=== PATIENT | male | born 1970 | race Caucasian/White ===

== ENCOUNTER 2022-09-27 19:20 | Emergency (ER) | payer MEDICARE ==
--- NOTE | 2022-09-27 21:30 | NUR ---
arrival pt arrived to ED ambulatory c/o flank and abd pain x 1 day pmhx kidney stones x5 months.
[2022-09-27 21:57] VITALS: BP 215/156
[2022-09-27] MEDS ORDERED: TORADOL IV STA (22:04)
[2022-09-27] MEDS ORDERED: TORADOL ONE (22:10)
--- NOTE | 2022-09-27 22:13 | ER.PDOC ---
General Chief Complaint: Requesting Medical Care Stated Complaint: ABD PAIN Time seen by MD: 22:12 Source: patient Exam Limitations: no limitations History of Present Illness Initial Comments Right lower quadrant pain for 1 week. Patient has a history of kidney stones and thinks that he is passing one. It feels same. Severity/Quality: moderate, sharpness Radiation: no radiation Associated Symptoms: denies symptoms Exacerbated by: nothing Relieved By: nothing Vital Signs First Vital Signs Date Time Temp Pulse Resp B/P (MAP) Pulse Ox O2 Delivery O2 Flow Rate FiO2 09/27/22 21:57 98.7 113 20 09/27/22 21:57 96 09/27/22 21:57 215/156 (175) Room Air* 0 21 Last Vital Signs Date Time Temp Pulse Resp B/P (MAP) Pulse Ox O2 Delivery O2 Flow Rate FiO2 09/28/22 00:42 94 175/120 09/27/22 21:57 98.7 20 96 Room Air* 0 21 Past Medical History Medical History: GERD, high cholesterol, hypertension, other Family History Significant Family History: no pertinent family hx Social History Smoking: non-smoker Alcohol Use: none Drug Use: other Constitutional: no symptoms reported EENTM: no symptoms reported Respiratory: no symptoms reported Cardiovascular: no symptoms reported Gastrointestinal: see HPI All Other Systems: Reviewed and Negative Physical Exam General Appearance: No Apparent Distress, WD/WN Neck: Non-Tender, Full Range of Motion, Supple, Normal Inspection Respiratory: chest non-tender, lungs clear, normal breath sounds, no respiratory distress, no accessory muscle use Cardiovascular: Normal Peripheral Pulses, Regular Rate, Rhythm, No Edema, No Gallop, No JVD, No Murmur Gastrointestinal: Normal Bowel Sounds, No Organomegaly, No Pulsatile Mass, Guarding, Tenderness (RLQ) Back: Normal Inspection, No CVA Tenderness, No Vertebral Tenderness Extremities: Normal Range of Motion, Non-Tender, Normal Inspection, No Pedal Edema, No Calf Tenderness, Normal Capillary Refill, Pelvis Stable 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 (09/27/22 22:04) Urinalysis (09/27/22 22:04) Ct Abd/Pelvis Wo Iv Contrast (09/27/22 22:04) Ketorolac Tromethamine (Toradol) (09/27/22 22:04) Ketorolac Tromethamine (Toradol) (09/27/22 22:10) Lactic Acid(Ml) (09/27/22 23:40) 0.9 % Sodium Chloride (Ns 1000ml) (09/27/22 23:40) 0.9 % Sodium Chloride (Ns 1000ml) (09/27/22 23:58) Urine Culture (09/27/22 22:10) Hydralazine Hcl (Apresoline) (09/28/22 00:34) Ceftriaxone Sodium (Rocephin) (09/28/22 00:34) Hydralazine Hcl (Apresoline) (09/28/22 00:38) Ceftriaxone Sodium (Rocephin) (09/28/22 00:38) 0.9 % Sodium Chloride (Ns 100ml) (09/28/22 00:38) Hydromorphone Hcl (Dilaudid) (09/28/22 00:55) Hydromorphone Hcl (Dilaudid) (09/28/22 00:58) Vital Signs Date Time Temp Pulse Resp B/P (MAP) Pulse Ox O2 Delivery O2 Flow Rate FiO2 09/28/22 00:42 94 175/120 09/27/22 21:57 98.7 113 20 215/156 (175) 96 Room Air* 0 21 09/27/22 21:57 98.7 113 20 96 09/27/22 21:57 98.7 113 20 Administered Medications Medications (Trade) Dose Ordered Sig/Jacey Route PRN Reason Start Time Stop Time Status Last Admin Dose Admin Ceftriaxone Sodium 1000 mg/ Sodium Chloride 100 ml @ 100 mls/hr STAT STAT IV 09/28/22 00:34 09/28/22 01:33 09/28/22 00:42 100 MLS/HR Hydralazine HCl (Apresoline) 10 mg STAT STAT IV 09/28/22 00:34 09/28/22 00:36 DC 09/28/22 00:42 10 MG Hydromorphone HCl (Dilaudid) 2 mg STAT STAT IV 09/28/22 00:55 09/28/22 00:56 DC 09/28/22 01:01 2 MG Ketorolac Tromethamine (Toradol) 30 mg STAT STAT IV 09/27/22 22:04 09/27/22 22:06 DC 09/27/22 22:13 30 MG Sodium Chloride 1,000 ml @ 1,200 mls/hr Q50M STAT IV 09/27/22 23:40 09/28/22 00:29 DC 09/28/22 00:03 1,200 MLS/HR Laboratory Tests Test 09/27/22 22:10 09/27/22 23:54 White Blood Count 12.4 10^3/uL (4.5-11.0) H Red Blood Count 5.42 10^6/uL (4.50-5.90) Hemoglobin 16.8 g/dL (13.9-16.3) H Hematocrit 48.3 % (37.0-53.0) Mean Corpuscular Volume 89.1 fL (78-100) Mean Corpuscular Hemoglobin 31.0 pg (26-34) Mean Corpuscular Hemoglobin Concent 34.8 g/dL (33-36.5) Red Cell Distribution Width 12.3 % (11.5-14.5) Platelet Count 252 10^3/uL (150-400) Mean Platelet Volume 11.1 fL (7.8-11.0) H Neutrophils (%) (Auto) 55.8 % (41.0-85.0) Lymphocytes (%) (Auto) 34.9 % (24.0-44.0) Monocytes (%) (Auto) 6.5 % (5.0-12.0) Neutrophils # (Auto) 6.9 10^3/uL (1.8-7.7) Lymphocytes # (Auto) 4.34 10^3/uL1 (1.0-4.8) Monocytes # (Auto) 0.8 10^3/uL (0.3-0.8) Absolute Immature Granulocyte (auto 0.06 10^3 u/L (0-2) Absolute Eosinophils (auto) 0.2 10^3/uL (0.0-0.2) Immature Granulocytes % 0.50 % (0.00-0.50) Eosinophils % 1.6 % (0.0-5.0) Basophils % 0.7 % (0.0-0.2) H Basophils # 0.1 10^3/uL (0.0-0.1) Prothrombin Time 10.3 SEC (9.7-11.6) INR 1.0 Activated Partial Thromboplast Time 26.4 SEC (22.5-33.1) Sodium Level 141 mmol/L (132-145) Potassium Level 3.8 mmol/L (3.6-5.2) Chloride Level 102.0 mmol/L (96-109) Carbon Dioxide Level 25.6 mmol/L (20.0-32) Anion Gap 17.2 Blood Urea Nitrogen 5 mg/dL (7-18) L Creatinine 1.04 mg/dL (0.59-1.40) Estimated GFR () 91.8 (>/=60) Est GFR (CKD-EPI)(Non-Afr [place]) 75.9 (>/=60) BUN/Creatinine Ratio 4.0 (10.0-20.0) L Glucose Level 117 mg/dL (70-110) H Lactic Acid Level 1.1 mmol/L (0.5-1.9) Calcium Level 8.7 mg/dL (8.4-10.5) Total Bilirubin 0.5 mg/dL (0.2-1.0) Aspartate Amino Transferase (AST) 24 U/L (0-35) Alanine Aminotransferase (ALT) 35 U/L (12-78) Alkaline Phosphatase 126 U/L (50-136) Total Protein 7.7 g/dL (6.4-8.2) Albumin 4.3 g/dL (3.4-5.0) Globulin 3.4 Albumin/Globulin Ratio 1.264 Urine Collection Type CCMS Urine Color YELLOW Urine Appearance CLEAR Urine Bilirubin NEGATIVE (NEGATIVE) Urine Ketones NEGATIVE (NEGATIVE) Urine Specific [place] 1.020 (1.005-1.030) Urine pH 5.5 (4.5-8.0) Urine Protein 2+ (NEGATIVE) H Urine Urobilinogen 0.2 E.U./dL (0.2) Urine Nitrate NEGATIVE (NEGATIVE) Urine Leukocyte Esterase TRACE (NEGATIVE) H Urine Glucose (Auto)(UA) NEGATIVE (NEGATIVE) Urine Blood 2+ (NEGATIVE) H Urine RBC 5-10 RBC/HPF (NONE SEEN) H Urine WBC 5-10 WBC/HPF (0-2) H Urine Squamous Epithelial Cells FEW (<=FEW) Urine Bacteria FEW (NONE SEEN) H Progress Progress CT abdomen/pelvis: . Large stone in the right renal pelvis with mild adjacent edema suggesting mild hydronephrosis or local infection. Additional small stones in the right kidney. WBC 12.4 without left shift. Glucose 170, rest of chemistries unremarkable. Lactate 1.1. Urinalysis: Trace leukocyte esterase, WBC 5-10 and bacteria few. Patient received IV fluids, Rocephin, hydralazine, Toradol, Zofran and Dilaudid. I reviewed patient's previous records. I also discussed his results with him. He voices understanding. Blood pressure improved prior to discharge. ER DEPART Departure Time of Disposition: 01:14 Disposition: 01 HOME / SELF CARE / HOMELESS Impression: Primary Impression: Right nephrolithiasis Additional Impressions: UTI (urinary tract infection) Hypertensive urgency Condition: Improved Referrals: PCP,UNKNOWN (PCP) PRIMARY CARE PROVIDER Additional Instructions: Tylenol #3 Bactrim DS Keep a blood pressure diary Continue with blood pressure medication at home Follow-up with your PCP in 2 to 3 days Follow-up with Dr. Corea in 1 to 2 days Return to ED if worsening pain or concerns Duration or Time Spent with Pa: 60 min Problem Qualifiers Additional Impressions: UTI (urinary tract infection) Urinary tract infection type: site unspecified Hematuria presence: with hematuria Qualified Codes: N39.0 - Urinary tract infection, site not specified; R31.9 - Hematuria, unspecified AMINA ACOSTA MD Sep 27, 2022 22:13
[2022-09-27 22:25] LABS: BASOPHIL # 0.1 10^3/uL (0.0-0.1); BASOPHIL % 0.7 % (0.0-0.2); EOSINOPHIL # 0.2 10^3/uL (0.0-0.2); EOSINOPHIL % 1.6 % (0.0-5.0); LYMPHOCYTES # 4.34 10^3/uL1 (1.0-4.8); LYMPHOCYTES % 34.9 % (24.0-44.0); MONOCYTES # 0.8 10^3/uL (0.3-0.8); MONOCYTES % 6.5 % (5.0-12.0); NEUTROPHIL # 6.9 10^3/uL (1.8-7.7); NEUTROPHILS % 55.8 % (41.0-85.0); PLATELET COUNT 252 10^3/uL (150-400); RED CELL DISTRIBUTION WIDTH 12.3 % (11.5-14.5)
[2022-09-27 22:37] LABS: CARBON DIOXIDE 25.6 mmol/L (20.0-32)
--- NOTE | 2022-09-27 22:47 | DIREP ---
PROCEDURE:CT ABDOMEN/PELVIS W/O CONTRAST COMPARISON:None. INDICATIONS:Right lower quadrant pain TECHNIQUE:Axial images were created through the abdomen and pelvis without intravenous contrast material. No oral contrast was administered. Sagittal and coronal reconstructions were performed from source images. FINDINGS: LUNG BASES:Lung bases are clear. Severe coronary artery calcifications are noted. LIVER:No acute findings. BILIARY:The gallbladder is surgically absent. There is no biliary ductal dilatation. PANCREAS:No lesion, fluid collection, ductal dilatation, or atrophy. SPLEEN:No enlargement or focal lesion. Adjacent splenule ADRENALS:Bilateral adrenals are within normal limits. No mass or thickening. URINARY TRACT:Prominent stone in the right renal pelvis near the UPJ measures 1.8 x 0.9 cm in transverse and AP dimensions with mild adjacent haziness in the fat, correlate for local infection or may relate to mild hydronephrosis. There are 3 small stones in the lower right kidney measuring up to 2 mm. Probable small cyst lower pole right kidney. Exophytic cyst anterior cortex lower pole left kidney measures 2.8 cm. AORTA/VASCULAR:Scattered calcified plaque. RETROPERITONEUM:No adenopathy. BOWEL/MESENTERY:Normal appendix. No bowel obstruction. Mild diverticulosis of the descending colon without acute diverticulitis. ABDOMINAL WALL:Normal. No mass or hernia. PELVIC ORGANS:Normal. No visible mass. Pelvic organs appropriate for patient age. BONES:No acute osseous findings. OTHER:Negative. CONCLUSION: 1. Large stone in the right renal pelvis with mild adjacent edema suggesting mild hydronephrosis or local infection. Additional small stones in the right kidney. Dictated by: Pete Carr M.D. on 09/27/2022 at 10:38 PM
[2022-09-27] MEDS ORDERED: NS 1000ML 1,000 ML IV STA (23:40)
[2022-09-27 23:58] LABS: BILIRUBIN,URINE NEGATIVE (NEGATIVE); UROBILINOGEN,URINE 0.2 E.U./dL (0.2)
[2022-09-27] MEDS ORDERED: NS 1000ML 1,000 ML ONE (23:58)
[2022-09-28] MEDS ORDERED: APRESOLINE IV STA ×2 (00:34→01:31)
[2022-09-28] MEDS ORDERED: ROCEPHIN 1,000 MG in NS 100ML 100 ML IV STA (00:34)
[2022-09-28] MEDS ORDERED: ROCEPHIN ONE (00:38)
[2022-09-28] MEDS ORDERED: APRESOLINE ONE ×2 (00:38→01:36)
[2022-09-28] MEDS ORDERED: NS 100ML 100 ML IV ONE (00:38)
[2022-09-28] MEDS ORDERED: DILAUDID IV STA (00:55)
[2022-09-28] MEDS ORDERED: DILAUDID ONE (00:58)
[2022-09-28 01:38] VITALS: BP 167/119
== END 2022-09-28 01:38 | disposition home or self-care (01) ==
LOC: ER 19:20
DX: N39.0 Urinary tract infection, site not specified (principal); N20.0 Calculus of kidney; I16.0 Hypertensive urgency; E78.00 Pure hypercholesterolemia, unspecified; I10 Essential (primary) hypertension; K21.9 Gastro-esophageal reflux disease without esophagitis; Z87.442 Personal history of urinary calculi
CPT/HCPCS: 99285; 74176; 96374; 87086; 80053; 85025; 36415; 83605; 81001; 85610; 85730; 96375; 96361; J7030; J1885; J0360 ×2; J1170; J0696 ×2